=== PATIENT | male | born 1955 | race Caucasian/White ===

== ENCOUNTER 2018-02-23 21:37 | Emergency (ER) | payer OTHER ==
[~2018-02-23] VITALS: Ht 170.2 cm; Wt 99.8 kg
[2018-02-23 21:50] VITALS: BP 213/79
--- NOTE | 2018-02-23 22:13 | PHYS DOC ---
Past Medical History Past Medical History: Hypertension Past Surgical History: Other Additional Past Surgical Histo: left rotator cuff, mult. others Alcohol Use: Occasionally Drug Use: None Adult General Chief Complaint Chief Complaint: ELBOW PROBLEM HPI HPI Patient is a 63 year old [f__sex] who presents with [] Review of Systems Review of Systems Constitutional: Denies fever or chills [] Eyes: Denies change in visual acuity, redness, or eye pain [] HENT: Denies nasal congestion or sore throat [] Respiratory: Denies cough or shortness of breath [] Cardiovascular: No additional information not addressed in HPI [] GI: Denies abdominal pain, nausea, vomiting, bloody stools or diarrhea [] : Denies dysuria or hematuria [] Musculoskeletal: Denies back pain or joint pain [] Integument: Denies rash or skin lesions [] Neurologic: Denies headache, focal weakness or sensory changes [] Endocrine: Denies polyuria or polydipsia [] All other systems were reviewed and found to be within normal limits, except as documented in this note. Current Medications Current Medications Current Medications Medications (Trade) Dose Ordered Sig/Izzy Start Time Stop Time Status Last Admin Dose Admin Ibuprofen (Motrin) 600 mg 1X ONCE 02/23/18 22:30 02/23/18 22:31 DC 02/23/18 22:33 600 MG Allergies Allergies Allergies Coded Allergies Type Severity Reaction Last Updated Verified acetaminophen Allergy Intermediate itching 12/21/13 Yes meperidine Allergy Intermediate itching 12/21/13 Yes oxycodone Allergy Intermediate itching 12/21/13 Yes propoxyphene Allergy Intermediate itching 12/21/13 Yes Physical Exam Physical Exam Constitutional: Well developed, well nourished, no acute distress, non-toxic appearance. [] HENT: Normocephalic, atraumatic, bilateral external ears normal, oropharynx moist, no oral exudates, nose normal. [] Eyes: PERRLA, EOMI, conjunctiva normal, no discharge. [] Neck: Normal range of motion, no tenderness, supple, no stridor. [] Cardiovascular:Heart rate regular rhythm, no murmur [] Lungs & Thorax: Bilateral breath sounds clear to auscultation [] Abdomen: Bowel sounds normal, soft, no tenderness, no masses, no pulsatile masses. [] Skin: Warm, dry, no erythema, no rash. [] Back: No tenderness, no CVA tenderness. [] Extremities: No tenderness, no cyanosis, no clubbing, ROM intact, no edema. [] Neurologic: Alert and oriented X 3, normal motor function, normal sensory function, no focal deficits noted. [] Psychologic: Affect normal, judgement normal, mood normal. [] EKG EKG [] Radiology/Procedures Radiology/Procedures [] Course & Med Decision Making Course & Med Decision Making Pertinent Labs and Imaging studies reviewed. (See chart for details) [] Dragon Disclaimer Dragon Disclaimer This electronic medical record was generated, in whole or in part, using a voice recognition dictation system. Departure Departure Impression: Primary Impression: Elbow pain, right Disposition: 01 HOME, SELF-CARE Condition: STABLE Referrals: J LUIS AL MD (PCP) ANKITA REDDY II, MD orthopedic doctor to follow-up with if symptoms persist or worsen Patient Instructions: Elbow Injury Additional Instructions: Wear yakov wrap to elbow for support and apply ice every 3-4 hours for 20-30 minutes at a time. Follow-up with orthopedic doctor recommended for further evaluation. Ibuprofen as needed for pain control as directed on container. VINCE DALAL APRN Feb 23, 2018 22:13
[2018-02-23] MEDS ORDERED: IBUPROFEN 600 MG TABLET. PO ONE (22:30)
--- NOTE | 2018-02-24 09:18 | RAD ---
EXAM: AP, oblique and lateral views of the right elbow DATE: 02/23/2018 10:15 PM INDICATION: injury to elbow. Patient felt and heard a snap. COMPARISON: No Prior FINDINGS: No evidence of acute fracture or dislocation. No joint effusion. Olecranon enthesopathy. Medial epicondylar enthesopathy. Joint spaces are preserved. IMPRESSION: 1. No evidence of acute fracture or dislocation. Electronically signed by: Jaspreet Patino MD (02/24/2018 9:14 AM) [facility]
== END 2018-02-23 23:05 | disposition home or self-care (01) ==
LOC: ER 21:37
DX: M25.521 Pain in right elbow (principal); I10 Essential (primary) hypertension; Z88.6 Allergy status to analgesic agent; Z88.5 Allergy status to narcotic agent; Z88.8 Allergy status to other drugs, medicaments and biological substances
CPT/HCPCS: 73080; 99284